=== PATIENT | male | born 1965 | race Caucasian/White ===

== ENCOUNTER 2016-11-12 08:09 | Emergency (ER) | payer BC ==
--- NOTE | 2016-11-17 10:35 | ER ---
ADMIT: 11/12/2016 RM/LOC: ER [facility] MR#: [id number] [facility] [id number] ELZBIETA JENKINS [address] [place] [address] Emergency Room Report SEX: M AGE: 51 : 1965 DATE: 11/12/2016 ADDENDUM: This 51-year-old white male coming with left flank pain. He has seen Urology yesterday, they did a plain film, they could not see any stone. Urine was clear. They put him on antibiotic today, continued to have twinging of pain. CT reveals 2 x 4 mm stone at the bladder of trigone. Discharged home. Follow up with Urology as needed. We did give him [address] [place] just in case. CONDITION ON DISCHARGE: Good. Jeronimo Carr MD/ pablo JOB #: [id number] CC: Jeronimo Carr MD, Attending Physician Rashad Solorzano MD, Family Physician
== END 2016-11-12 10:42 | disposition home or self-care (01) ==
LOC: ER 08:09
DX: N13.2 Hydronephrosis with renal and ureteral calculous obstruction (principal); Z88.2 Allergy status to sulfonamides